=== PATIENT | female | born 1955 | race Caucasian/White ===

== ENCOUNTER 2017-09-11 06:08 | Day surgery (SDC) | payer OTHER ==
[~2017-09-11] VITALS: Ht 157.5 cm; Wt 109.3 kg
[~2017-09-11 06:08] MED LIST: ALLO300 PO; Amlodipine Bes2.5 MG PO; Aspir 8181 MG PO; BASAGLAR K100 UNIT/1 SC; Bactrim 400-801 EACH; Black Cohosh40 M1; CLON.1 PO; DOCU100 PO; FLUSAL2505 INH; FLUT1DIS5 INH; HYDR1TAB94 PO; Hydrochloroth12.5 MG PO; INDO50 PO; INSULANPEN SC; ISOMON20 PO; LEVFLO500 PO; LEVO750 PO; LISI20 PO; METF500 PO; METF500C PO; METO50 PO; PRED10 PO; PREG200 PO; PREG300 PO; PYRI100 PO; RANI150 PO; ROCEPHIN; SERT100 PO; SIMV10 PO; Sm Glucosamine1 EACH PO; TIOT18 INH; Tylenol325 MG PO; Ventolin Soln3 ML INH; ZESTORETIC 20-121 EA PO
== END 2017-09-11 09:31 | disposition home or self-care (01) ==
LOC: ORSCSDS 06:08
PROVIDERS: Podiatrist Foot & Ankle Surgery
PROC: 0SGP04Z Fusion of Right Toe Phalangeal Joint with Internal Fixation Device, Open Approach (ICD-10-PCS; principal; 2017-09-11 07:30)
DX: L97.512 Non-pressure chronic ulcer of other part of right foot with fat layer exposed (principal); E11.621 Type 2 diabetes mellitus with foot ulcer; I10 Essential (primary) hypertension; J44.9 Chronic obstructive pulmonary disease, unspecified; Z79.899 Other long term (current) drug therapy; Z79.82 Long term (current) use of aspirin; E66.01 Morbid (severe) obesity due to excess calories; Z68.41 Body mass index [BMI] 40.0-44.9, adult
CPT/HCPCS: 82947; J0690; J2250; J3010

== ENCOUNTER → 2017-10-16 | Outpatient (CLI) | payer OTHER | END | disposition home or self-care (01) | LOC: LAB SHORT 11:16 → LAB 11:16 | DX: E11.49 Type 2 diabetes mellitus with other diabetic neurological complication (principal); E11.621 Type 2 diabetes mellitus with foot ulcer; L97.519 Non-pressure chronic ulcer of other part of right foot with unspecified severity | CPT/HCPCS: 87070; 87075; 87077; 87186; 87205 ==

== ENCOUNTER 2020-12-06 19:32 | Inpatient (IN) | payer MEDICARE, OTHER ==
[~2020-12-06] VITALS: Ht 157.5 cm; Wt 69.6 kg
[2020-12-06] MEDS ORDERED: Prinivil10 MG PO (20:14)
[2020-12-06] MEDS ORDERED: ROSU10TA PO (20:15)
[2020-12-06] MEDS ORDERED: TORSE20 PO (20:15)
[2020-12-06] MEDS ORDERED: C COMPLEX1000 M1 PO (20:15)
[2020-12-06] MEDS ORDERED: MAGNESIUM OXID500 MG PO (20:16)
[2020-12-06] MEDS ORDERED: Phentermine HCl15 MG PO (20:16)
[2020-12-06] MEDS ORDERED: TOPI50 PO (20:17)
[2020-12-06] MEDS ORDERED: ERGO50000 PO (20:17)
[2020-12-06 20:18] LABS: Hematocrit 37.2 % (33.0-51.0); Hemoglobin 11.6 g/dL (11.5-16.0); Mean Corpuscular HGB 25.1 pg (26.0-34.0); Mean Corpuscular HGB Conc 31.2 g/dL (31.5-36.5); Mean Corpuscular Volume 80 fL (80-100); Mean Platelet Volume 11.3 fL (9.1-12.4); Platelet Count 260 K/mm3 (150-400); RDW Coefficient Variation 18.6 % (11.7-14.2); RDW Standard Deviation 53.3 fL (35.1-46.3); Red Blood Cell Count 4.63 M/mm3 (3.80-5.20); White Blood Cell Count 22.32 K/mm3 (4.00-11.30)
[2020-12-06] MEDS ORDERED: ALENDRONATE SOD35 MG PO (20:18)
[2020-12-06] MEDS ORDERED: NITR.4SL SL (20:18)
[2020-12-06 20:29] LABS: Alanine Aminotransfer (ALT/SGP 23 U/L (12-78); Albumin/Globulin Ratio 0.8 (0.8-1.8); Alk Phos 137 U/L (50-136); Anion Gap 8 mmol/L (6-16); Aspartate Aminotrans (AST/SGOT 16 U/L (12-37); Bilirubin, Total 0.3 mg/dL (0.1-1.0); Blood Urea Nitrogen 24 mg/dL (8-24); Bun/Creatinine Ratio 25.2 (12.0-20.0); CO2, Blood 23 mmol/L (21-32); Calcium, Blood 8.4 mg/dL (8.5-10.1); Chloride, Blood 104 mmol/L (98-108); Creatinine, Blood 0.95 mg/dL (0.40-1.00); Glomerular Filtration Rate >60 (60-); Glucose, Blood 134 mg/dL (70-99); Sodium, Blood 135 mmol/L (136-145)
[2020-12-06 20:33] LABS: Prothrombin Time Results 10.8 Sec (9.7-11.5)
[2020-12-06 20:42] LABS: BASOPHILS PERCENT MAN 0 % (0-2); EOSINOPHILS PERCENT MAN 0 % (0-6); LYMPHOCYTES ABSOLUTE MAN 0.44 K/mm3 (0.84-5.20); LYMPHOCYTES PERCENT MAN 2 % (21-46); MONOCYTES PERCENT MAN 0 % (4-13); NEUTROPHILS ABSOLUTE MAN 21.87 K/mm3 (1.96-9.15); SEG NEUTROPHILS PERCENT MAN 98 % (41-73); TOTAL CELLS COUNTED 100
[2020-12-06 20:43] LABS: Source, Urine Catheter
[2020-12-06 20:47] LABS: Appearance, Urine Clear (Clear); Bilirubin, Urine Neg (Neg); Blood, Urine 1+ (Neg); Color, Urine Yellow (P-Yellow); Glucose Qualitative, Urine Neg (Neg); Ketones, Urine Neg (Neg); Leukocyte Esterase, Urine 3+ (Neg); Nitrite, Urine Pos (Neg); Protein, Urine 1+ (Neg); Urobilinogen, Urine NORM (Normal)
[2020-12-06 20:57] LABS: Hyaline Casts 0-2 /lpf (0-2)
[2020-12-06 20:58] LABS: Bacteria Many /hpf; Squamous Epithelial Cells Mod /hpf (Few); White Blood Cells, Urine 25-50 /hpf (0-5)
--- NOTE | 2020-12-07 04:40 | NUR ---
SHIFT SUMMARY PATIENT IS ALERT AND ORIENTED X4. VSS. SPO2 >90 ON 2L VIA NC. PATIENT C/O FEET PAIN MEDICATED PER EMAR. SHE HAS BANDAGES ON HER TOES WHERE SHE HAS ABRASIONS. PATIENT AMBULATES TO TOILET WITH USE OF WALKER. PATIENT HAS RESTED WELL SINCE ADMISSION FROM ED. WILL CONTINUE UNTIL END OF SHIFT.
[2020-12-07 04:55] LABS: Hematocrit 31.6 % (33.0-51.0); Mean Corpuscular HGB 25.2 pg (26.0-34.0); Mean Corpuscular HGB Conc 31.6 g/dL (31.5-36.5); Mean Corpuscular Volume 80 fL (80-100); Mean Platelet Volume 11.7 fL (9.1-12.4); Platelet Count 220 K/mm3 (150-400); RDW Coefficient Variation 18.6 % (11.7-14.2); RDW Standard Deviation 53.7 fL (35.1-46.3); Red Blood Cell Count 3.97 M/mm3 (3.80-5.20)
--- NOTE | 2020-12-07 13:35 | NUR ---
CARE COORDINATION REFERRAL - ADMIT: 12/06/20 DISCHARGE: DX: SEPSIS CC: [facility]MA CALL: RESIDENCE: HOME CAREGIVER: BUFFY DELEON, CHILD, MIKE JEFFERSON, SPOUSE / PARTNER, RODRIGO DELEON, FAMILY MEMBER, DX: COPD, CAD, DM, NEUROPATHY, NICHOLAS, SEE LIST DME: DM SUPPLIES, DIABETIC SHOES, NEBULIZER AND SUPPLIES, CPAP CCM: HOME HEALTH: SUMMARY: ADMIT: 12/06/20 12/07/20- PER CHART REVIEW WITH DR. MIRANDA. PT IS SEPTIC AND NEEDS IV ANTIBOTICS. THERE IS NO PLAN FOR D/C AT THIS TIME AND PT WILL MOST LIKELY STAY THROUGH THE WEEKEND.-JEWEL
--- NOTE | 2020-12-07 18:22 | NUR ---
SHIFT NOTE PT HAS BEEN SBA TO THE [facility] T/O THE DAY. PT HAS BEEN INTERMITTENTLY FEBRILE T/O THE DAY. PT DID REQUIRE A BREATHING TREATMENT TODAY SHE BECAME SOB WITH AMBULATION TO BATHROOM. PT OTHERWISE HAS BEEN TREATED FOR FEVER AND PAIN TODAY. SHE DENIES ANY OTHER NEEDS
--- NOTE | 2020-12-08 06:12 | NUR ---
SHIFT SUMMARY PATIENT FOUND TO BE PLEASANT LADY WHO IS A&OX4, [place], AND FOLLOWING COMMANDS. TMAX OVERNIGHT 101.1 WITH GOOD RELIEF WITH TYLENOL. SINUS TACHY ON THE MONITOR IN 90'S TO LOW 100'S. ON RA MOST OF SHIFT BUT AFTER EXERTION 2LNC PUT ON PRN. FLOREZ AND EXPIRATORY WHEEZES NOTED. UP WITH ONE ASSIST TO BSC. HEART HEALTHY DIET. BILAT FOOT NEUROPATHIC PAIN WELL CONTROLLED WITH PRN NORCO. IV FLUIDS AND ABX INFUSING PER ORDER THROUGH POWERGLIDE THAT WAS PUT IN OVERNIGHT. NO ACUTE CONCERNS AT THIS TIME. WILL CONTINUE TO MONITOR.
--- NOTE | 2020-12-08 08:00 | NUR ---
pt sitting up in a chair watching tv, a/ox3, pleasant and cooperative with care, follows commands well, denies pain, states she is feeling much better, lungs are clear dim in bases, resp even and unlabored, no cough noted, hrr, tele in place running sr per monitor, see strip, no edema noted, ppp+2, cap refill <3sec, vs stable, afebrile, iv site is power glide to emil site is clear and patent, btx4, abd flat soft nontender, voids without diff, skin c/w/d, maew, omi, call light in reach.
[2020-12-08] MEDS ORDERED: CEFD300 PO (12:46)
--- NOTE | 2020-12-08 13:15 | NUR ---
pt has been discharged to home, went over discharge instructions with pt and daughter, new medications faxed to pharmacy, power glide removed intact, left via wheelchair with printed circuit board panels trimmer in attendenc.
--- NOTE | 2020-12-08 16:43 | NUR ---
12/08/20- per chart review with Dr. Swan, pt is stable to d/c. Met with pt and daughter who is her caregiver. Pt will be taking her home. Daughter is able to provide pt assistance as needed. Pharmacy is [facility] and daugther is able to pear picker medications for her. There are 3 stairs to get into the home and pts daughter helps her when she needs it when using them. There are no wound care needs and no concerns going home. Discussed NORMA letter and pt and daughter acknowledged understanding. -vandana
== END 2020-12-08 13:23 | disposition home or self-care (01) | DRG 872 ==
LOC: ER 19:32 → ERHOLD 22:43 → PCU 22:43
PROVIDERS: Physician Assistant; ADMIT Internal Medicine
DX: A41.51 Sepsis due to Escherichia coli [E. coli] (principal); N39.0 Urinary tract infection, site not specified; R65.20 Severe sepsis without septic shock; I10 Essential (primary) hypertension; J44.9 Chronic obstructive pulmonary disease, unspecified; E78.00 Pure hypercholesterolemia, unspecified; D64.9 Anemia, unspecified; M10.9 Gout, unspecified; E11.40 Type 2 diabetes mellitus with diabetic neuropathy, unspecified; E86.9 Volume depletion, unspecified; M54.5 Low back pain; G89.29 Other chronic pain; Z86.73 Personal history of transient ischemic attack (TIA), and cerebral infarction without residual deficits; Z87.891 Personal history of nicotine dependence; Z87.01 Personal history of pneumonia (recurrent); Z90.710 Acquired absence of both cervix and uterus; Z98.890 Other specified postprocedural states; Z88.5 Allergy status to narcotic agent; Z79.4 Long term (current) use of insulin; Z79.82 Long term (current) use of aspirin; Z79.899 Other long term (current) drug therapy
CPT/HCPCS: 36415; 71045; 80053; 81001; 82947; 83605; 85025; 85027; 85610; 85730; 87040; 87077; 87086; 87186; 93005; 93010; 94640; 94760; 96365; 99285-25; A9270; C1751; J0696; J1650; J2543; J7030; J7040

== ENCOUNTER → 2021-01-31 | Outpatient (CLI) | payer OTHER ==
[~2021-01-31] MED LIST changes: +ALENDRONATE SOD35 MG PO; +C COMPLEX1000 M1 PO; +CEFD300 PO; +ERGO50000 PO; +MAGNESIUM OXID500 MG PO; +NITR.4SL SL; +Phentermine HCl15 MG PO; +Prinivil10 MG PO; +ROSU10TA PO; +TOPI50 PO; +TORSE20 PO
== END | disposition home or self-care (01) ==
LOC: LAB SHORT 10:00 → LAB 10:00
DX: N39.0 Urinary tract infection, site not specified (principal)
CPT/HCPCS: 87077; 87086; 87186

== ENCOUNTER → 2021-08-01 | Outpatient (CLI) | payer OTHER ==
[2021-08-02 14:07] LABS: Stool Occult Bld Immuno 1 Negative (NEGATIVE)
== END | disposition home or self-care (01) ==
LOC: LAB SHORT 10:37
PROVIDERS: Internal Medicine
DX: Z12.11 Encounter for screening for malignant neoplasm of colon (principal)
CPT/HCPCS: 82274

== ENCOUNTER → 2021-08-27 | Outpatient (CLI) | payer OTHER | LOC: LAB SHORT 14:48 → LAB 14:48 | DX: Z09 Encounter for follow-up examination after completed treatment for conditions other than malignant neoplasm (principal); Z87.440 Personal history of urinary (tract) infections | CPT/HCPCS: 87077; 87086; 87186 ==

== ENCOUNTER 2021-10-07 10:44 | Inpatient (IN) | payer OTHER ==
[~2021-10-07] VITALS: Ht 157.5 cm; Wt 86.6 kg
[2021-10-07 11:16] LABS: Source, Urine Clean Catch
[2021-10-07 11:20] LABS: Bilirubin, Urine Neg (Neg); Blood, Urine Neg (Neg); Glucose Qualitative, Urine Neg (Neg); Ketones, Urine 2+ (Neg); Leukocyte Esterase, Urine 3+ (Neg); Nitrite, Urine Pos (Neg); Protein, Urine 1+ (Neg); Urobilinogen, Urine NORM (Normal)
[2021-10-07 11:30] LABS: BASOPHILS ABSOLUTE AUTO 0.05 K/mm3 (0.00-0.23); BASOPHILS PERCENT AUTO 0 % (0-2); EOSINOPHILS ABSOLUTE AUTO 0.02 K/mm3 (0.00-0.68); EOSINOPHILS PERCENT AUTO 0 % (0-6); Hematocrit 42.2 % (33.0-51.0); Hemoglobin 13.5 g/dL (11.5-16.0); IMMATURE GRAN ABSOLUTE AUTO 0.11 K/mm3 (0.00-0.10); IMMATURE GRAN PERCENT AUTO 1 % (0-1); LYMPHOCYTES ABSOLUTE AUTO 1.22 K/mm3 (0.84-5.20); LYMPHOCYTES PERCENT AUTO 7 % (21-46); MONOCYTES ABSOLUTE AUTO 1.27 K/mm3 (0.16-1.47); MONOCYTES PERCENT AUTO 7 % (4-13); Mean Corpuscular HGB 27.6 pg (26.0-34.0); Mean Corpuscular Volume 86 fL (80-100); Mean Platelet Volume 11.7 fL (9.1-12.4); NEUTROPHILS PERCENT AUTO 85 % (41-73); Platelet Count 280 K/mm3 (150-400); RDW Coefficient Variation 15.2 % (11.7-14.2); RDW Standard Deviation 47.7 fL (35.1-46.3); White Blood Cell Count 17.77 K/mm3 (4.00-11.30)
[2021-10-07 11:32] LABS: Appearance, Urine Hazy (Clear); Color, Urine Pale Yellow (P-Yellow)
[2021-10-07 11:34] LABS: Amorphous Heavy (0-Heavy); Bacteria Many /hpf; Red Blood Cells, Urine 0-2 /hpf (0-2); Squamous Epithelial Cells Rare /hpf (Few); WBC Cast 0-2 /lpf (0)
[2021-10-07 11:49] LABS: Alanine Aminotransfer (ALT/SGP 21 U/L (12-78); Albumin, Blood 2.9 g/dL (3.4-5.0); Albumin/Globulin Ratio 0.6 (0.8-1.8); Alk Phos 156 U/L (50-136); Anion Gap 11 mmol/L (6-16); Aspartate Aminotrans (AST/SGOT 18 U/L (12-37); Bilirubin, Total 0.4 mg/dL (0.1-1.0); Blood Urea Nitrogen 13 mg/dL (8-24); Bun/Creatinine Ratio 18.9 (12.0-20.0); CO2, Blood 22 mmol/L (21-32); Calcium, Blood 8.7 mg/dL (8.5-10.1); Chloride, Blood 102 mmol/L (98-108); Creatinine, Blood 0.69 mg/dL (0.40-1.00); Globulin, Blood 4.6 g/dL (2.2-4.0); Glomerular Filtration Rate >60 (60-); Glucose, Blood 141 mg/dL (70-99); Potassium, Blood 3.6 mmol/L (3.5-5.5); Sodium, Blood 135 mmol/L (136-145); Total Protein, Blood 7.5 g/dL (6.4-8.2)
[2021-10-07 12:29] LABS: Influenza B, PCR NEGATIVE (NEGATIVE); Resp Syncytial Virus, PCR NEGATIVE (NEGATIVE); SARS-Cov-2 (COVID-19) PCR, MMC NEGATIVE (NEGATIVE)
[2021-10-07 13:23] LABS: Influenza A, PCR POSITIVE (NEGATIVE)
--- NOTE | 2021-10-07 15:44 | NUR ---
PT. ARRIVE TO FLOOR VIA GURNEY FROM ED AT 1505. ALERT AND ORIENTED X 4, PLEASANT AFFECT. VSS, SATS 93% ON ROOM AIR. DAUGHTER HERE AT THIS TIME AND ASKED TO BRING HOME CPAP IN, DAUGHTER TO GO HOME AND GET IT AT THIS TIME. ORIENTED TO CALL LIGHT USE, IN REACH, AND ENCOURAGED TO CALL FOR ANY NEEDS, CONCERNS, COMPLAINTS. DID GET UP TO VOID IN BSC WITH HANDS ON ASSIST OF ONE, VERY UNSTEADY. DID VOID 200CC HAZY YELLOW URINE. DENEIS ANY PAIN OR DISCOMFORT AT THIS TIME.
--- NOTE | 2021-10-08 04:45 | NUR ---
AOX4. DENIES PAIN MEDICATION. LUNGS WHEEZING. COUGHING. DRINKING WATER WELL. VOIDING USING THE COMMODE. UP WITH ONE ASSISTS USING FWW. HR HIGH AT BEGINNIG OF SHIFT AND IMPROVED WITH SCHEDULE BP MEDS. HAD A SMALL BM. ON 2 LITERS OF O2 AT NIGHT. SKIN INTACT.
--- NOTE | 2021-10-08 18:44 | NUR ---
SHIFT SUMMARY PT REPORTS FEELING BETTER THIS AFTERNOON. UNABLE TO WEAN O2 @ THIS TIME. UP TO CHAIR & UP IN ROOM SEVERAL TIMES SINCE STARTING TO FEEL BETTER. PLEASANT & UPBEAT.
[2021-10-09 03:58] LABS: BASOPHILS ABSOLUTE AUTO 0.05 K/mm3 (0.00-0.23); BASOPHILS PERCENT AUTO 0 % (0-2); EOSINOPHILS ABSOLUTE AUTO 0.07 K/mm3 (0.00-0.68); EOSINOPHILS PERCENT AUTO 0 % (0-6); Hematocrit 37.6 % (33.0-51.0); Hemoglobin 12.2 g/dL (11.5-16.0); IMMATURE GRAN ABSOLUTE AUTO 0.11 K/mm3 (0.00-0.10); IMMATURE GRAN PERCENT AUTO 1 % (0-1); LYMPHOCYTES PERCENT AUTO 10 % (21-46); MONOCYTES ABSOLUTE AUTO 1.41 K/mm3 (0.16-1.47); MONOCYTES PERCENT AUTO 9 % (4-13); Mean Corpuscular HGB 28.2 pg (26.0-34.0); Mean Corpuscular HGB Conc 32.4 g/dL (31.5-36.5); Mean Corpuscular Volume 87 fL (80-100); Mean Platelet Volume 11.4 fL (9.1-12.4); NEUTROPHILS ABSOLUTE AUTO 13.18 K/mm3 (1.96-9.15); NEUTROPHILS PERCENT AUTO 80 % (41-73); Platelet Count 304 K/mm3 (150-400); RDW Coefficient Variation 15.2 % (11.7-14.2); RDW Standard Deviation 48.7 fL (35.1-46.3); Red Blood Cell Count 4.32 M/mm3 (3.80-5.20); White Blood Cell Count 16.42 K/mm3 (4.00-11.30)
[2021-10-09 04:12] LABS: Albumin, Blood 2.4 g/dL (3.4-5.0); Anion Gap 7 mmol/L (6-16); Blood Urea Nitrogen 15 mg/dL (8-24); Bun/Creatinine Ratio 21.1 (12.0-20.0); CO2, Blood 23 mmol/L (21-32); Calcium, Blood 8.4 mg/dL (8.5-10.1); Chloride, Blood 107 mmol/L (98-108); Creatinine, Blood 0.71 mg/dL (0.40-1.00); Glomerular Filtration Rate >60 (60-); Glucose, Blood 124 mg/dL (70-99); Phosphorus, Blood 2.7 mg/dL (2.5-4.9); Potassium, Blood 3.9 mmol/L (3.5-5.5); Sodium, Blood 137 mmol/L (136-145)
--- NOTE | 2021-10-09 04:23 | NUR ---
SHIFT SUMMARY PT CONTINUES TO REPORT THAT SHE IS SLOWLY FEELING BETTER. LUNGS REMAIN COURSE T/O. ON 2L VIA NC TO MAINTAIN SATS ABOVE 90%. CPAP USE WHILE ASLEEP. CONT BIOX IN PLACE. PT DENIES SOB. 1 SBA TO BRP. DENIES PAIN THIS SHIFT. USES CALL LIGHT APPROPRIATELY.
--- NOTE | 2021-10-09 11:23 | NUR ---
Pt. is alert and sitting up in a recliner. Pt. welcomes my visit. Pt. is unsettled by her illness, but is expecting to be discharged sometime to day. Listen empathetically and establish rapport. Pt. displays evidence of encouragement. Normalize the pts. experience. Pt.s spouse and daughter arrive. [place] with pt. and family. Pt. verbalized gratitude for the spiritual care visit.
[2021-10-09] MEDS ORDERED: PROBIOTIC1 EA13 PO (12:07)
[2021-10-09] MEDS ORDERED: AZIT250 PO (12:07)
[2021-10-09] MEDS ORDERED: AMOCLA875 PO (12:08)
[2021-10-09] MEDS ORDERED: Diflucan100 MG PO (12:10)
--- NOTE | 2021-10-09 12:45 | NUR ---
DISCHARGE MEDS FAXED TO [facility]; CONFORMATION RECIEVED. PT ECXITED FOR DC. DAUGHTER AT SIDE. PLEASANT & COOPERATIVE.
--- NOTE | 2021-10-10 08:02 | NUR ---
Per Dr. Nguyen discharge appropriate. Patient does not oppose discharge. Patient discharged home: [address], [place]. Home Health ordered upon discharge. [facility] Liaison contacted for referral and notified of discharge. Date of discharge: 10/09/2021 Date of admission: 10/07/2021 Transportation provided by: Family daughter Verenice Black DME Ordered: none ordered/PT recommendation: 4WW; patient has a rollator; patient also has Oxygen and CPAP. Follow-ups needed: [facility] will contact patient to schedule hospital follow-up visit if needed. Reinforced need to schedule and attend appointment (telehealth visit scheduled due to pneumonia). Provider/PCP: Dr. Dilip Reilly When: scheduled for 10/11/21 Specialty: N/A When: N/A Confirmed numbers: Patient [phone] Daughter Verenice [phone] (approval to speak with daughter) Comment: Patient to contact PCP with any questions regarding medication management, social service needs, and if condition worsens go to Urgent Care/ER. No barriers to discharge on this date. Patient has a strong support network.
--- NOTE | 2021-10-10 10:38 | NUR ---
Received referral from [facility] Gear Machine Operator (Karmen Telles) on 10/09/2021. Patient discharged 10/09/2021 with orders for home health and elected [facility]. Contacted patient's daughter (Verenice Black) at number listed on demographic sheet to further discuss the above. Patient's daughter is agreeable to the above. Discussed homebound status definition with patient's daughter. Patient's daughter verbalized understanding. Discussed what home health is vs what it is not (in home caregivers/housekeeping). Patient's daughter verbalized understanding. Discussed the next steps in the process of an initial assessment to determine frequency of visits. Again patient's daughter verbalized understanding. Offered a chance for patient's daughter to ask questions regarding the above of which there were none. Gathered all supporting documentation for referral (face sheet, face to face, med list, H&P, discharge summary, and most recent PT assessment) and sent to [facility] for review. No further interventions required. Ciera Patel Referral Liaison
== END 2021-10-09 12:45 | disposition home health service (06) | DRG 194 ==
LOC: ER 10:44 → SURS 13:29
PROVIDERS: Physician Assistant; ADMIT Family Medicine
DX: J10.01 Influenza due to other identified influenza virus with the same other identified influenza virus pneumonia (principal); J44.0 Chronic obstructive pulmonary disease with (acute) lower respiratory infection; N39.0 Urinary tract infection, site not specified; Z20.822 Contact with and (suspected) exposure to COVID-19; F41.8 Other specified anxiety disorders; I10 Essential (primary) hypertension; E78.00 Pure hypercholesterolemia, unspecified; D64.9 Anemia, unspecified; E11.40 Type 2 diabetes mellitus with diabetic neuropathy, unspecified; M54.9 Dorsalgia, unspecified; G89.29 Other chronic pain; Z86.73 Personal history of transient ischemic attack (TIA), and cerebral infarction without residual deficits; Z90.710 Acquired absence of both cervix and uterus; Z87.891 Personal history of nicotine dependence; Z98.890 Other specified postprocedural states; Z88.5 Allergy status to narcotic agent; Z79.82 Long term (current) use of aspirin; Z79.84 Long term (current) use of oral hypoglycemic drugs; Z79.899 Other long term (current) drug therapy
CPT/HCPCS: 0241U; 36415; 71046; 80053; 80069; 81001; 82947; 83605; 84145; 85025; 87040; 87086; 94640; 94664; 94762; 96374; 97110; 97162; 97530; 99285-25; A9270; J0696; J1650; J7030

== ENCOUNTER → 2022-07-02 | Outpatient (CLI) | payer OTHER ==
[~2022-07-02] MED LIST changes: +AMOCLA875 PO; +AZIT250 PO; +Diflucan100 MG PO; +PROBIOTIC1 EA13 PO
== END | disposition home or self-care (01) ==
LOC: LAB SHORT 17:00 → LAB 17:00
DX: N39.0 Urinary tract infection, site not specified (principal)
CPT/HCPCS: 87077; 87086; 87186

== ENCOUNTER 2022-09-27 07:25 | Inpatient (IN) | payer OTHER ==
[~2022-09-27] VITALS: Ht 160 cm; Wt 99.5 kg
[2022-09-27 08:25] LABS: BASOPHILS ABSOLUTE AUTO 0.08 K/mm3 (0.00-0.23); BASOPHILS PERCENT AUTO 1 % (0-2); EOSINOPHILS ABSOLUTE AUTO 0.16 K/mm3 (0.00-0.68); EOSINOPHILS PERCENT AUTO 1 % (0-6); Hematocrit 35.8 % (33.0-51.0); Hemoglobin 11.4 g/dL (11.5-16.0); IMMATURE GRAN ABSOLUTE AUTO 0.05 K/mm3 (0.00-0.10); IMMATURE GRAN PERCENT AUTO 0 % (0-1); LYMPHOCYTES ABSOLUTE AUTO 1.07 K/mm3 (0.84-5.20); LYMPHOCYTES PERCENT AUTO 7 % (21-46); MONOCYTES ABSOLUTE AUTO 1.29 K/mm3 (0.16-1.47); MONOCYTES PERCENT AUTO 9 % (4-13); Mean Corpuscular HGB 27.2 pg (26.0-34.0); Mean Corpuscular HGB Conc 31.8 g/dL (31.5-36.5); Mean Corpuscular Volume 85 fL (80-100); Mean Platelet Volume 11.7 fL (9.1-12.4); NEUTROPHILS ABSOLUTE AUTO 11.72 K/mm3 (1.96-9.15); NEUTROPHILS PERCENT AUTO 82 % (41-73); Platelet Count 235 K/mm3 (150-400); RDW Coefficient Variation 14.8 % (11.7-14.2); RDW Standard Deviation 46.1 fL (35.1-46.3); Red Blood Cell Count 4.19 M/mm3 (3.80-5.20); White Blood Cell Count 14.37 K/mm3 (4.00-11.30)
[2022-09-27 08:40] LABS: Albumin/Globulin Ratio 0.8 (0.8-1.8); Bilirubin, Total 0.4 mg/dL (0.1-1.0); Bun/Creatinine Ratio 16.5 (12.0-20.0); Calcium, Blood 8.6 mg/dL (8.5-10.1); Creatinine, Blood 0.67 mg/dL (0.40-1.00); Globulin, Blood 3.7 g/dL (2.2-4.0); Potassium, Blood 3.8 mmol/L (3.5-5.5); Total Protein, Blood 6.7 g/dL (6.4-8.2)
[2022-09-27 08:56] LABS: Source, Urine Straight Cath
[2022-09-27 09:15] LABS: Influenza A, PCR NEGATIVE (NEGATIVE); Influenza B, PCR NEGATIVE (NEGATIVE); Resp Syncytial Virus, PCR NEGATIVE (NEGATIVE); SARS-Cov-2 (COVID-19) PCR, MMC NEGATIVE (NEGATIVE)
[2022-09-27 10:34] LABS: Appearance, Urine Hazy (Clear); Bilirubin, Urine Neg (Neg); Blood, Urine 1+ (Neg); Color, Urine Yellow (P-Yellow); Glucose Qualitative, Urine Neg (Neg); Ketones, Urine Neg (Neg); Leukocyte Esterase, Urine 3+ (Neg); Nitrite, Urine Pos (Neg); Protein, Urine 1+ (Neg); Urobilinogen, Urine NORM (Normal)
[2022-09-27] MEDS ORDERED: CYMBALTA30 M1 PO (10:57)
[2022-09-27 11:02] LABS: Bacteria Many /hpf; White Blood Cells, Urine 50-100 /hpf (0-5)
[2022-09-27 11:04] LABS: Squamous Epithelial Cells Rare /hpf (Few); Transitional Epithelial Cells Rare /hpf (0-Rare)
--- NOTE | 2022-09-27 13:25 | NUR ---
ADMISSION: PT A&O x4, PLEASANT, ABLE TO VOICE NEEDS AND COMMUNICATES WITH STAFF. PT ADMITTED FROM ER, AIR QUALITY MANAGER TRANSFERRED PT VIA HOSPITAL BED. PT ABLE TO AMBULATE FROM BED TO ROOM BED. PT HAD OXYGEN 2L NC, IV AND ABX INFUSING. PT ABLE TO CONFIRM MEDICATION LIST AND ALLERGIES. PT HAD MILD COMPLAINTS OF NEUROPATHY IN HER FEET. PT ORIENTATED TO THE ROOM, COMMUNICATION BOARD AND CALL LIGHT.
--- NOTE | 2022-09-27 19:26 | NUR ---
SHIFT SUMMARY: PT A&O X4, PLEASANT, AND ABLE TO VOICE NEEDS. PT HAD COMPLAINTS OF FEELING COLD, SHIVERING, ELEVATED TEMPERTURE 103.0, BLOOD PRESSURE 163/[address] MANZO CONTACTED NEW ORDERS FOR NS 250ML/ BOLUS, NS 1000 125ML/HR, AND IBUPROFEN 600MG NOW. PT REASSESSED TEMPERTURE 99.6, BLOOD PRESSURE 150/63, HR <120. PT STABLE AND STATED FEELING BETTER, HR STABLE. PT DAUGHTER AT BEDSIDE TO GIVE SUPPORT AND CARE. PT IN BED WITH CALL LIGHT WITHIN REACH.
[2022-09-28 06:07] LABS: BASOPHILS ABSOLUTE AUTO 0.07 K/mm3 (0.00-0.23); BASOPHILS PERCENT AUTO 1 % (0-2); EOSINOPHILS ABSOLUTE AUTO 0.12 K/mm3 (0.00-0.68); EOSINOPHILS PERCENT AUTO 1 % (0-6); Hematocrit 34.1 % (33.0-51.0); Hemoglobin 10.9 g/dL (11.5-16.0); IMMATURE GRAN ABSOLUTE AUTO 0.06 K/mm3 (0.00-0.10); IMMATURE GRAN PERCENT AUTO 1 % (0-1); LYMPHOCYTES ABSOLUTE AUTO 1.14 K/mm3 (0.84-5.20); LYMPHOCYTES PERCENT AUTO 9 % (21-46); MONOCYTES PERCENT AUTO 8 % (4-13); Mean Corpuscular HGB 27.4 pg (26.0-34.0); Mean Corpuscular Volume 86 fL (80-100); NEUTROPHILS ABSOLUTE AUTO 10.77 K/mm3 (1.96-9.15); NEUTROPHILS PERCENT AUTO 81 % (41-73); Platelet Count 234 K/mm3 (150-400); RDW Standard Deviation 46.5 fL (35.1-46.3); Red Blood Cell Count 3.98 M/mm3 (3.80-5.20); White Blood Cell Count 13.26 K/mm3 (4.00-11.30)
[2022-09-28 07:29] LABS: Bilirubin, Total 0.3 mg/dL (0.1-1.0); Potassium, Blood 3.6 mmol/L (3.5-5.5); Total Protein, Blood 6.3 g/dL (6.4-8.2)
[2022-09-28 07:30] LABS: Albumin, Blood 2.7 g/dL (3.4-5.0); Albumin/Globulin Ratio 0.8 (0.8-1.8); Calcium, Blood 8.8 mg/dL (8.5-10.1); Creatinine, Blood 0.56 mg/dL (0.40-1.00); Globulin, Blood 3.6 g/dL (2.2-4.0)
--- NOTE | 2022-09-28 17:27 | NUR ---
SHIFT SUMMARY NO ACUTE CHANGES DURING SHIFT. PT ALERT AND ORIENTED, CALLS APPROPRIATELY. PT REMAINS ON 2L NC. PT X 1 ASSIST WITH FWW. PT AFEBRILE DURING SHIFT, MEDICATED WITH PRN PAIN MEDS X 2 DURING SHIFT. WILL CONTINUE TO MONITOR, CALL LIGHT WITHIN REACH.
[2022-09-29 06:07] LABS: BASOPHILS ABSOLUTE AUTO 0.07 K/mm3 (0.00-0.23); BASOPHILS PERCENT AUTO 1 % (0-2); EOSINOPHILS ABSOLUTE AUTO 0.22 K/mm3 (0.00-0.68); EOSINOPHILS PERCENT AUTO 2 % (0-6); Hematocrit 34.5 % (33.0-51.0); IMMATURE GRAN ABSOLUTE AUTO 0.05 K/mm3 (0.00-0.10); IMMATURE GRAN PERCENT AUTO 1 % (0-1); LYMPHOCYTES ABSOLUTE AUTO 1.62 K/mm3 (0.84-5.20); LYMPHOCYTES PERCENT AUTO 16 % (21-46); MONOCYTES ABSOLUTE AUTO 0.95 K/mm3 (0.16-1.47); MONOCYTES PERCENT AUTO 9 % (4-13); Mean Corpuscular HGB 27.3 pg (26.0-34.0); Mean Corpuscular HGB Conc 31.9 g/dL (31.5-36.5); Mean Corpuscular Volume 86 fL (80-100); Mean Platelet Volume 11.3 fL (9.1-12.4); NEUTROPHILS ABSOLUTE AUTO 7.18 K/mm3 (1.96-9.15); NEUTROPHILS PERCENT AUTO 71 % (41-73); Platelet Count 268 K/mm3 (150-400); RDW Coefficient Variation 14.6 % (11.7-14.2); RDW Standard Deviation 45.5 fL (35.1-46.3); Red Blood Cell Count 4.03 M/mm3 (3.80-5.20); White Blood Cell Count 10.09 K/mm3 (4.00-11.30)
[2022-09-29 06:28] LABS: Bun/Creatinine Ratio 19.4 (12.0-20.0); Calcium, Blood 8.9 mg/dL (8.5-10.1); Creatinine, Blood 0.62 mg/dL (0.40-1.00); Potassium, Blood 3.7 mmol/L (3.5-5.5)
[2022-09-29] MEDS ORDERED: ACET325 PO (11:09)
[2022-09-29] MEDS ORDERED: AZIT250 PO (11:10)
[2022-09-29] MEDS ORDERED: GUAI600T33 PO (11:11)
[2022-09-29] MEDS ORDERED: BENZ100A PO (11:11)
[2022-09-29] MEDS ORDERED: AMOCLA875 PO (11:12)
--- NOTE | 2022-09-29 12:09 | NUR ---
DISCHARGE SUMMARY DISCHARGE INSTRUCTIONS, MEDICATIONS, AND FOLLOWUP GIVEN TO PT. PT VOICED COMPLETE UNDERSTANDING AND HAS NO QUESTIONS AT THIS TIME. IV REMOVED WITH CATHETER TIP INTACT. TELE BOX REMOVED. WILL CONTINUE TO MONITOR UNTIL PTS RIDE ARRIVES. CALL LIGHT WITHIN REACH.
== END 2022-09-29 12:17 | disposition home or self-care (01) | DRG 193 ==
LOC: ER 07:25 → MEDS 11:32
PROVIDERS: Emergency Medicine; Student in an Organized Health Care Education/Training Program; ADMIT Family Medicine
PROC: 5A09357 Assistance with Respiratory Ventilation, Less than 24 Consecutive Hours, Continuous Positive Airway Pressure (ICD-10-PCS; principal; 2022-09-27)
DX: J18.9 Pneumonia, unspecified organism (principal); J96.21 Acute and chronic respiratory failure with hypoxia; J44.0 Chronic obstructive pulmonary disease with (acute) lower respiratory infection; N39.0 Urinary tract infection, site not specified; I10 Essential (primary) hypertension; G47.33 Obstructive sleep apnea (adult) (pediatric); D64.9 Anemia, unspecified; M10.9 Gout, unspecified; M54.9 Dorsalgia, unspecified; G89.29 Other chronic pain; E11.42 Type 2 diabetes mellitus with diabetic polyneuropathy; M54.12 Radiculopathy, cervical region; M14.60 Charcot's joint, unspecified site; F32.A Depression, unspecified; I25.10 Atherosclerotic heart disease of native coronary artery without angina pectoris; G98.8 Other disorders of nervous system; E78.5 Hyperlipidemia, unspecified; E66.01 Morbid (severe) obesity due to excess calories; I87.2 Venous insufficiency (chronic) (peripheral); B07.8 Other viral warts; B96.20 Unspecified Escherichia coli [E. coli] as the cause of diseases classified elsewhere; Z20.822 Contact with and (suspected) exposure to COVID-19; Z90.710 Acquired absence of both cervix and uterus; Z86.73 Personal history of transient ischemic attack (TIA), and cerebral infarction without residual deficits; Z98.890 Other specified postprocedural states; Z87.891 Personal history of nicotine dependence; Z68.35 Body mass index [BMI] 35.0-35.9, adult; Z90.722 Acquired absence of ovaries, bilateral; Z88.5 Allergy status to narcotic agent; Z85.3 Personal history of malignant neoplasm of breast; Z79.899 Other long term (current) drug therapy; Z79.82 Long term (current) use of aspirin; Z79.52 Long term (current) use of systemic steroids; Z79.891 Long term (current) use of opiate analgesic; Z79.84 Long term (current) use of oral hypoglycemic drugs
CPT/HCPCS: 0241U; 36415; 71046; 80048; 80053; 81001; 82947; 83605; 85025; 87077; 87086; 87186; 93005; 93010; 94640; 94645; 94660; 94664; 94762; 96361; 96374; 96375; 99284-25; A9270; J0456; J0696; J1650; J7030; J7050; P9612

== ENCOUNTER → 2022-12-19 | Outpatient (CLI) | payer OTHER ==
[~2022-12-19] MED LIST changes: +ACET325 PO; +BENZ100A PO; +CYMBALTA30 M1 PO; +GUAI600T33 PO
[2022-12-19 11:51] LABS: Stool Occult Bld Immuno 1 Negative (NEGATIVE)
== END | disposition home or self-care (01) ==
LOC: LAB 10:10 → LAB SHORT 10:10
PROVIDERS: Internal Medicine
DX: Z12.11 Encounter for screening for malignant neoplasm of colon (principal)
CPT/HCPCS: 82274

== ENCOUNTER 2023-03-09 17:44 | Emergency (ER) | payer OTHER ==
[~2023-03-09] VITALS: Ht 162.6 cm; Wt 90.7 kg
[2023-03-09 18:15] VITALS: BP 157/82
[2023-03-09] MEDS ORDERED: AMOCLA875 PO (18:21)
== END 2023-03-09 18:20 | disposition home or self-care (01) ==
LOC: ER 17:44
DX: H66.92 Otitis media, unspecified, left ear (principal); R05.9 Cough, unspecified; I10 Essential (primary) hypertension; E11.9 Type 2 diabetes mellitus without complications; E78.00 Pure hypercholesterolemia, unspecified; G89.29 Other chronic pain; M54.9 Dorsalgia, unspecified; Z88.5 Allergy status to narcotic agent; Z79.84 Long term (current) use of oral hypoglycemic drugs; Z79.899 Other long term (current) drug therapy; Z79.82 Long term (current) use of aspirin; Z86.73 Personal history of transient ischemic attack (TIA), and cerebral infarction without residual deficits; J44.9 Chronic obstructive pulmonary disease, unspecified; Z87.891 Personal history of nicotine dependence
CPT/HCPCS: 99282

== ENCOUNTER → 2023-05-19 | Outpatient (CLI) | payer OTHER | END | disposition home or self-care (01) | LOC: LAB 10:22 → LAB SHORT 10:22 | DX: J02.9 Acute pharyngitis, unspecified (principal) | CPT/HCPCS: 87081 ==

== ENCOUNTER 2023-06-16 17:07 | Emergency (ER) | payer OTHER ==
[~2023-06-16] VITALS: Ht 157.5 cm; Wt 97.5 kg
[2023-06-16 17:54] LABS: Source, Urine Clean Catch
[2023-06-16 17:57] LABS: Appearance, Urine Hazy (Clear); Bilirubin, Urine Neg (Neg); Blood, Urine Neg (Neg); Color, Urine Yellow (P-Yellow); Glucose Qualitative, Urine Neg (Neg); Ketones, Urine Neg (Neg); Leukocyte Esterase, Urine 2+ (Neg); Nitrite, Urine Pos (Neg); Protein, Urine Neg (Neg); Specific Gravity, Urine 1.015 (1.003-1.022); Urobilinogen, Urine NORM (Normal)
[2023-06-16 18:11] LABS: BASOPHILS ABSOLUTE AUTO 0.08 K/mm3 (0.00-0.23); BASOPHILS PERCENT AUTO 0 % (0-2); EOSINOPHILS ABSOLUTE AUTO 0.15 K/mm3 (0.00-0.68); EOSINOPHILS PERCENT AUTO 1 % (0-6); Hematocrit 42.1 % (33.0-51.0); Hemoglobin 13.7 g/dL (11.5-16.0); IMMATURE GRAN ABSOLUTE AUTO 0.07 K/mm3 (0.00-0.10); IMMATURE GRAN PERCENT AUTO 0 % (0-1); LYMPHOCYTES ABSOLUTE AUTO 1.01 K/mm3 (0.84-5.20); LYMPHOCYTES PERCENT AUTO 6 % (21-46); MONOCYTES ABSOLUTE AUTO 1.26 K/mm3 (0.16-1.47); MONOCYTES PERCENT AUTO 7 % (4-13); Mean Corpuscular HGB 26.9 pg (26.0-34.0); Mean Corpuscular HGB Conc 32.5 g/dL (31.5-36.5); Mean Corpuscular Volume 83 fL (80-100); Mean Platelet Volume 12.2 fL (9.1-12.4); NEUTROPHILS ABSOLUTE AUTO 15.47 K/mm3 (1.96-9.15); NEUTROPHILS PERCENT AUTO 86 % (41-73); Platelet Count 255 K/mm3 (150-400); RDW Coefficient Variation 16.2 % (11.7-14.2); RDW Standard Deviation 48.2 fL (35.1-46.3); Red Blood Cell Count 5.09 M/mm3 (3.80-5.20); White Blood Cell Count 18.04 K/mm3 (4.00-11.30)
[2023-06-16 18:16] LABS: Bacteria Many /hpf; Red Blood Cells, Urine 0-2 /hpf (0-2); Squamous Epithelial Cells Few /hpf (Few); White Blood Cells, Urine 25-50 /hpf (0-5)
[2023-06-16 18:35] LABS: Albumin, Blood 3.5 g/dL (3.4-5.0); Albumin/Globulin Ratio 0.9 (0.8-1.8); Bilirubin, Total 0.3 mg/dL (0.1-1.0); Bun/Creatinine Ratio 19.5 (12.0-20.0); Calcium, Blood 9.2 mg/dL (8.5-10.1); Creatinine, Blood 0.87 mg/dL (0.40-1.00); Globulin, Blood 4.1 g/dL (2.2-4.0); Potassium, Blood 4.5 mmol/L (3.5-5.5); Total Protein, Blood 7.6 g/dL (6.4-8.2)
[2023-06-16] MEDS ORDERED: CEPH500 PO (20:16)
[2023-06-16 20:45] VITALS: BP 131/64
== END 2023-06-16 21:02 | disposition home or self-care (01) ==
LOC: ER 17:07
PROVIDERS: Student in an Organized Health Care Education/Training Program
DX: N39.0 Urinary tract infection, site not specified (principal); G93.40 Encephalopathy, unspecified; I10 Essential (primary) hypertension; J44.9 Chronic obstructive pulmonary disease, unspecified; E11.40 Type 2 diabetes mellitus with diabetic neuropathy, unspecified; M10.9 Gout, unspecified; Z88.5 Allergy status to narcotic agent; Z79.899 Other long term (current) drug therapy; Z79.84 Long term (current) use of oral hypoglycemic drugs; Z79.82 Long term (current) use of aspirin; Z87.891 Personal history of nicotine dependence
CPT/HCPCS: 71046; 80053; 81001; 85025; 87077; 87086; 87186; 93005; 93010; 96365; 96375; 99284-25; J0696; J1170

== ENCOUNTER 2023-06-18 18:20 | Emergency (ER) | payer OTHER ==
[~2023-06-18] VITALS: Ht 157.5 cm; Wt 97.5 kg
[~2023-06-18 18:20] MED LIST changes: +CEPH500 PO
[2023-06-18 18:25] VITALS: BP 128/64
[2023-06-18 20:13] LABS: BASOPHILS ABSOLUTE AUTO 0.05 K/mm3 (0.00-0.23); BASOPHILS PERCENT AUTO 0 % (0-2); EOSINOPHILS ABSOLUTE AUTO 0.34 K/mm3 (0.00-0.68); EOSINOPHILS PERCENT AUTO 2 % (0-6); Hematocrit 37.7 % (33.0-51.0); Hemoglobin 12.1 g/dL (11.5-16.0); IMMATURE GRAN ABSOLUTE AUTO 0.11 K/mm3 (0.00-0.10); IMMATURE GRAN PERCENT AUTO 1 % (0-1); LYMPHOCYTES ABSOLUTE AUTO 1.46 K/mm3 (0.84-5.20); LYMPHOCYTES PERCENT AUTO 7 % (21-46); MONOCYTES ABSOLUTE AUTO 1.29 K/mm3 (0.16-1.47); MONOCYTES PERCENT AUTO 7 % (4-13); Mean Corpuscular HGB 26.6 pg (26.0-34.0); Mean Corpuscular HGB Conc 32.1 g/dL (31.5-36.5); Mean Corpuscular Volume 83 fL (80-100); Mean Platelet Volume 11.7 fL (9.1-12.4); NEUTROPHILS ABSOLUTE AUTO 16.56 K/mm3 (1.96-9.15); NEUTROPHILS PERCENT AUTO 84 % (41-73); Platelet Count 233 K/mm3 (150-400); RDW Coefficient Variation 16.4 % (11.7-14.2); RDW Standard Deviation 49.6 fL (35.1-46.3); Red Blood Cell Count 4.55 M/mm3 (3.80-5.20); White Blood Cell Count 19.81 K/mm3 (4.00-11.30)
[2023-06-18 20:31] LABS: Albumin, Blood 2.8 g/dL (3.4-5.0); Albumin/Globulin Ratio 0.6 (0.8-1.8); Bilirubin, Total 0.2 mg/dL (0.1-1.0); Bun/Creatinine Ratio 30.4 (12.0-20.0); Calcium, Blood 8.9 mg/dL (8.5-10.1); Creatinine, Blood 0.76 mg/dL (0.40-1.00); Globulin, Blood 4.4 g/dL (2.2-4.0); Total Protein, Blood 7.2 g/dL (6.4-8.2)
[2023-06-18] MEDS ORDERED: SULTRIDS PO (20:58)
[2023-06-18] MEDS ORDERED: AMOCLA875 PO (20:58)
== END 2023-06-18 21:38 | disposition home or self-care (01) ==
LOC: ER 18:20
PROVIDERS: Emergency Medicine
DX: L03.116 Cellulitis of left lower limb (principal); Z88.5 Allergy status to narcotic agent; Z79.899 Other long term (current) drug therapy; Z79.84 Long term (current) use of oral hypoglycemic drugs; Z79.82 Long term (current) use of aspirin; I10 Essential (primary) hypertension; J44.9 Chronic obstructive pulmonary disease, unspecified; E11.42 Type 2 diabetes mellitus with diabetic polyneuropathy; E78.00 Pure hypercholesterolemia, unspecified; D64.9 Anemia, unspecified; M10.9 Gout, unspecified; Z87.891 Personal history of nicotine dependence
CPT/HCPCS: 36415; 73560-LT; 73590; 80053; 83605; 85025; 93971; 96365; 99284-25

== ENCOUNTER → 2023-06-26 | Outpatient (CLI) | payer OTHER ==
[~2023-06-26] MED LIST changes: +SULTRIDS PO
== END | disposition home or self-care (01) ==
LOC: LAB SHORT 17:10 → LAB 17:10
DX: L02.91 Cutaneous abscess, unspecified (principal)
CPT/HCPCS: 87070; 87075; 87205

== ENCOUNTER → 2023-12-05 | Outpatient (CLI) | payer OTHER | END | disposition home or self-care (01) | LOC: LAB SHORT 09:38 → LAB 09:38 | DX: M25.522 Pain in left elbow (principal) ==

== ENCOUNTER → 2024-05-22 | Outpatient (CLI) | payer OTHER ==
[~2024-05-22] MED LIST changes: +ALBU90OI INH; +ALBU90OI6; +Acerola C500 MG; +ELIQUIS5 M2; +Natrol Alpha 3300 MG; +ONE DAILY MUL400 MCG; +OZEMPIC0.25 MG/02; +Ventolin5 MG/1 ML INH; +ZINC15
== END ==
LOC: LAB 09:30 → LAB SHORT 09:30
DX: N39.0 Urinary tract infection, site not specified (principal)
CPT/HCPCS: 87077; 87086; 87186

== ENCOUNTER 2024-05-25 09:33 | Day surgery (SDC) | payer OTHER ==
[~2024-05-25] VITALS: Ht 160 cm; Wt 93.6 kg
[~2024-05-25 09:33] MED LIST changes: -ALBU90OI6; -Acerola C500 MG; -ELIQUIS5 M2; +Lactated Ringer's 1,000 ML IV ONE; -Natrol Alpha 3300 MG; -ONE DAILY MUL400 MCG; -OZEMPIC0.25 MG/02; -ZINC15
[2024-05-25] MEDS ORDERED: Acerola C500 MG (09:48)
[2024-05-25] MEDS ORDERED: ELIQUIS5 M2 (09:48)
[2024-05-25] MEDS ORDERED: OZEMPIC0.25 MG/02 (09:48)
[2024-05-25] MEDS ORDERED: ZINC15 (09:49)
[2024-05-25] MEDS ORDERED: ONE DAILY MUL400 MCG (09:49)
[2024-05-25] MEDS ORDERED: ALBU90OI6 (09:49)
[2024-05-25] MEDS ORDERED: Natrol Alpha 3300 MG (09:50)
[2024-05-25] MEDS ORDERED: Lactated Ringer's 1,000 ML IV ONE (11:10)
[2024-05-25] MEDS ORDERED: FentaNYL Citrate 50 MCG/ML 2 ML Injection ONE (11:27)
[2024-05-25] MEDS ORDERED: propofoL 50 ML IV ONE (11:27)
[2024-05-25] MEDS ORDERED: Midazolam HCL 1 MG/ML 5MLVIAL ONE (11:27)
--- NOTE | 2024-05-25 11:38 | NUR ---
05/25/24 1138 Vy [place] PT. DENIES ANY PAIN. EARRINGS TAKEN OUT BY DAUGHTER. DAUGHTER GIVEN A SPECIMEN CUP, EARRINGS IN THE SPECIMEN CUP WITH DAUGHTER.
[2024-05-25 12:32] VITALS: BP 104/63
== END 2024-05-25 12:34 | disposition home or self-care (01) ==
LOC: ORSCSDS 09:33
PROVIDERS: Specialist
PROC: 0DBK8ZX Excision of Ascending Colon, Via Natural or Artificial Opening Endoscopic, Diagnostic (ICD-10-PCS; principal; 2024-05-25 11:00)
PROC: 0DBL8ZX Excision of Transverse Colon, Via Natural or Artificial Opening Endoscopic, Diagnostic (ICD-10-PCS; principal; 2024-05-25 11:00)
PROC: 0DBH8ZX Excision of Cecum, Via Natural or Artificial Opening Endoscopic, Diagnostic (ICD-10-PCS; principal; 2024-05-25 11:00)
DX: Z12.11 Encounter for screening for malignant neoplasm of colon (principal); D12.0 Benign neoplasm of cecum; D12.2 Benign neoplasm of ascending colon; D12.3 Benign neoplasm of transverse colon; K64.8 Other hemorrhoids; K57.30 Diverticulosis of large intestine without perforation or abscess without bleeding; I10 Essential (primary) hypertension; J44.89 Other specified chronic obstructive pulmonary disease; G47.33 Obstructive sleep apnea (adult) (pediatric); E11.9 Type 2 diabetes mellitus without complications; E66.9 Obesity, unspecified; Z68.36 Body mass index [BMI] 36.0-36.9, adult; Z79.84 Long term (current) use of oral hypoglycemic drugs; Z79.01 Long term (current) use of anticoagulants
CPT/HCPCS: 82947; 88305; J2250; J2704; J3010; J7120

== ENCOUNTER 2024-09-17 17:18 | Emergency (ER) | payer OTHER ==
[~2024-09-17] VITALS: Ht 154.9 cm; Wt 90.7 kg
[~2024-09-17 17:18] MED LIST changes: +ALBU90OI6; +Acerola C500 MG; +ELIQUIS5 M2; -Lactated Ringer's 1,000 ML IV ONE; +Natrol Alpha 3300 MG; +ONE DAILY MUL400 MCG; +OZEMPIC0.25 MG/02; +ZINC15
[2024-09-17] MEDS ORDERED: Albuterol 2.5 MG/3 ML VIAL INH SCH (17:55)
[2024-09-17] MEDS ORDERED: MethylPREDNISolone Sod Succ 125 MG Vial IV ONE (17:55)
[2024-09-17 18:25] LABS: BASOPHILS ABSOLUTE AUTO 0.03 K/mm3 (0.00-0.23); BASOPHILS PERCENT AUTO 0 % (0-2); EOSINOPHILS PERCENT AUTO 0 % (0-6); Hematocrit 41.5 % (33.0-51.0); Hemoglobin 13.4 g/dL (11.5-16.0); IMMATURE GRAN ABSOLUTE AUTO 0.11 K/mm3 (0.00-0.10); IMMATURE GRAN PERCENT AUTO 1 % (0-1); LYMPHOCYTES ABSOLUTE AUTO 1.14 K/mm3 (0.84-5.20); LYMPHOCYTES PERCENT AUTO 10 % (21-46); MONOCYTES ABSOLUTE AUTO 0.45 K/mm3 (0.16-1.47); MONOCYTES PERCENT AUTO 4 % (4-13); Mean Corpuscular HGB 28.7 pg (26.0-34.0); Mean Corpuscular HGB Conc 32.3 g/dL (31.5-36.5); Mean Corpuscular Volume 89 fL (80-100); Mean Platelet Volume 11.8 fL (9.1-12.4); NEUTROPHILS ABSOLUTE AUTO 10.27 K/mm3 (1.96-9.15); NEUTROPHILS PERCENT AUTO 86 % (41-73); Platelet Count 220 K/mm3 (150-400); RDW Coefficient Variation 15.5 % (11.7-14.2); RDW Standard Deviation 50.3 fL (35.1-46.3); Red Blood Cell Count 4.67 M/mm3 (3.80-5.20)
[2024-09-17 18:46] LABS: Bun/Creatinine Ratio 25.9 (12.0-20.0); Creatinine, Blood 0.73 mg/dL (0.40-1.00); Potassium, Blood 4.3 mmol/L (3.5-5.5)
[2024-09-17] MEDS ORDERED: Ipratropium/Albuterol SulF 2.5-0.5MG/3 ML Amp INH ONE (20:30)
[2024-09-17 21:17] LABS: Influenza A, PCR NEGATIVE (NEGATIVE); Influenza B, PCR NEGATIVE (NEGATIVE); SARS-Cov-2 (COVID-19) PCR, MMC NEGATIVE (NEGATIVE)
[2024-09-17 21:55] LABS: Resp Syncytial Virus, PCR POSITIVE (NEGATIVE)
[2024-09-17 22:23] VITALS: BP 136/72
== END 2024-09-17 22:24 | disposition home or self-care (01) ==
LOC: ER 17:18
PROVIDERS: Emergency Medicine
DX: S05.12XA Contusion of eyeball and orbital tissues, left eye, initial encounter (principal); S09.90XA Unspecified injury of head, initial encounter; B97.4 Respiratory syncytial virus as the cause of diseases classified elsewhere; J44.9 Chronic obstructive pulmonary disease, unspecified; E11.9 Type 2 diabetes mellitus without complications; I10 Essential (primary) hypertension; Z79.01 Long term (current) use of anticoagulants; Z79.899 Other long term (current) drug therapy; Z79.84 Long term (current) use of oral hypoglycemic drugs; Z88.5 Allergy status to narcotic agent; W18.30XA Fall on same level, unspecified, initial encounter; Z87.891 Personal history of nicotine dependence
CPT/HCPCS: 0241U; 70450; 71046; 74177; 80048; 83880; 84484; 85025; 93005; 93010; 94640; 94664; Q9967

== ENCOUNTER → 2024-11-23 | Outpatient (CLI) | payer OTHER | END | disposition home or self-care (01) | LOC: LAB 15:06 → LAB SHORT 15:06 | DX: R30.0 Dysuria (principal) | CPT/HCPCS: 87077; 87086; 87186 ==